=== PATIENT | female | born 1960 | race Caucasian/White ===

== ENCOUNTER 2022-01-07 17:46 | Emergency (ER) | payer SELFPAY ==
[~2022-01-07] VITALS: Ht 172.7 cm; Wt 70.3 kg
[2022-01-07 17:46] VITALS: BP 122/71
--- NOTE | 2022-01-07 18:46 | NUR ---
COVID SWAB DONE AND SENT TO LAB
--- NOTE | 2022-01-07 18:51 | NUR ---
Patient discharged to home in stable condition. Written and verbal after care instructions given. Patient verbalizes understanding of instruction.
== END 2022-01-07 18:51 | disposition home or self-care (01) ==
LOC: ER 17:52
DX: U07.1 COVID-19 (principal); J02.8 Acute pharyngitis due to other specified organisms; J45.909 Unspecified asthma, uncomplicated; Z86.16 Personal history of COVID-19
CPT/HCPCS: 87426; 99283; C9803